=== PATIENT | female | born 1990 | race Two or more races ===

== ENCOUNTER 2021-01-10 23:10 | Emergency (ER) | payer MEDICAID, OTHER ==
[~2021-01-10] VITALS: Ht 165.1 cm; Wt 63.5 kg
--- NOTE | 2021-01-10 23:16 | NUR ---
PT [id number]. [id number] FROM HOME FOR TRIP AND FALL, INJURIES TO FACE, DENIES KO. PLACED IN BED 10 ON MONITOR AND PULSE OX.
[2021-01-10] MEDS ORDERED: LORAZEPAM 0.5 MG TABLET ONE (23:26)
[2021-01-10] MEDS ORDERED: LORAZEPAM 1 MG TABLET PO ONE (23:30)
--- NOTE | 2021-01-10 23:45 | NUR ---
CONTACTED [employer] FOR PATIENT VIA NON EMERGENCY LINE.
[2021-01-11] MEDS ORDERED: KETO10TA2 PO (00:44)
[2021-01-11] MEDS ORDERED: AMOX-430 PO (00:44)
--- NOTE | 2021-01-11 00:58 | NUR ---
Patient discharged to home in stable condition. Written and verbal after care instructions given. Patient verbalizes understanding of instruction. Pt ambulated out of ED. VSS.
[2021-01-11 01:02] VITALS: BP 116/76
== END 2021-01-11 01:02 | disposition home or self-care (01) ==
LOC: ER 23:12
DX: S02.2XXA Fracture of nasal bones, initial encounter for closed fracture (principal); S01.21XA Laceration without foreign body of nose, initial encounter; W22.8XXA Striking against or struck by other objects, initial encounter; Y93.89 Activity, other specified; Y92.038 Other place in apartment as the place of occurrence of the external cause; Y99.8 Other external cause status
CPT/HCPCS: 70450-TC; 70486-TC